=== PATIENT | female | born 1940 | race Asian ===

== ENCOUNTER 2016-05-01 07:43 | Day surgery (SDC) | payer OTHER ==
[2016-05-01] MEDS ORDERED: DIAZEPAM 5 MG TAB PO ONE (07:46)
[2016-05-01] MEDS ORDERED: ASPIRIN EC 325 MG TAB PO ONE ×2 (07:46→08:35)
[2016-05-01] MEDS ORDERED: NS 1,000 ML IV ONE (07:46)
[2016-05-01] MEDS ORDERED: FAMOTIDINE 20 MG TAB PO ONE (07:46)
[2016-05-01] MEDS ORDERED: diphenhydrAMINE 25 MG CAP PO ONE ×2 (07:46→08:35)
--- NOTE | 2016-05-01 08:25 | CPEKG ---
Heart Rate: 63 RR Interval: 952 P-R Interval: 216 QRSD Interval: 88 QT Interval: 444 QTC Interval: 455 P [place]: 27 QRS [place]: -18 T Wave [place]: 53 EKG Severity - ABNORMAL ECG - EKG Impression: SINUS RHYTHM EKG Impression: PROBABLE LEFT ATRIAL ABNORMALITY EKG Impression: PROBABLE LEFT VENTRICULAR HYPERTROPHY EKG Impression: PROBABLE INFERIOR INFARCT, AGE INDETERMINATE Electronically Signed By: Nash Porras 01-May-2016 09:13:56
[2016-05-01] MEDS ORDERED: FAMOTIDINE 20 MG TAB ONE (08:35)
[2016-05-01] MEDS ORDERED: DIAZEPAM 5 MG TAB ONE (08:35)
[2016-05-01 08:39] LABS: % IMMATURE GRANULYOCYTES 0.4 % (0.0-1.1); ABSOLUTE IMMATURE GRANULOCYTES 0.03 10^3/uL (0.00-0.10); ADD DIFF? NO; ADD MORPH? NO; ADD SCAN? NO; ATYPICAL LYMPHOCYTE FLAG 0 (0-99); FRAGMENT RBC FLAG 0 (0-99); HEMATOCRIT 39.9 % (38.0-47.0); HEMOGLOBIN 14.2 g/dL (12.6-16.3); LEFT SHIFT FLG 0 (0-99); LIPEMIA HEMOLYSIS FLAG 90 (0-99); MEAN CELL HEMOGLOBIN 33.5 pg (27.9-34.1); MEAN CELL HEMOGLOBIN CONCENTR. 35.6 g/dL (32.4-36.7); MEAN CELL VOLUME 94.1 fL (81.5-99.8); MEAN PLATELET VOLUME 8.8 fL (8.7-11.7); PLATELET CLUMPS FLAG 0 (0-99); PLATELET COUNT 220 10^3/uL (150-400); RED BLOOD CELL COUNT 4.24 10^6/uL (4.18-5.33); RED CELL DISTRIBUTION WIDTH 11.9 % (11.5-15.2)
[2016-05-01 08:45] LABS: INR 1.01 (0.83-1.16); PROTIME(PATIENT) 13.2 SEC (12.0-15.0)
[2016-05-01 09:01] LABS: ANION GAP 9 mEq/L (8-16); CARBON DIOXIDE 25 mEq/l (22-31); CHLORIDE 108 mEq/L (97-110); CHOLESTEROL 143 mg/dL (140-220); CHOLESTEROL/HDL RATIO 3.11 RATIO (1.00-4.44); CREATININE 0.7 mg/dL (0.6-1.0); GLOMERULAR FILTRATION RATE > 60; GLUCOSE 94 mg/dL (70-100); HIGH DENSITY LIPOPROTEIN 46 mg/dL (40-85); LDL/HDL RATIO 1.48 RATIO (1.00-3.22); LOW DENSITY LIPOPROTEIN 68 mg/dL (80-100); MAGNESIUM 2.1 mg/dL (1.6-2.3); NON-HIGH DENSITY LIPOPROTEIN 97 mg/dL (90-129); POTASSIUM 4.5 mEq/L (3.5-5.2); SODIUM 142 mEq/L (134-144); TRIGLYCERIDE 147 mg/dL (35-135); VERY LOW DENSITY LIPOPROTEINS 29 mg/dL (8-25)
[2016-05-01] MEDS ORDERED: MIDAZOLAM 2 MG/2 ML VIAL ONE (09:14)
[2016-05-01] MEDS ORDERED: LIDOCAINE 1% 30 ML SDV ONE (09:14)
[2016-05-01] MEDS ORDERED: fentaNYL 100 MCG/2 ML INJ ONE (09:14)
[2016-05-01] MEDS ORDERED: IOPAMIDOL (ISOVUE 370) 100 ML BTL IV ONE (09:15)
[2016-05-01] MEDS ORDERED: VERAPAMIL 5 MG/2 ML VIAL ONE (09:15)
[2016-05-01] MEDS ORDERED: HEPARIN 10,000 UNIT/10 ML MDV ONE (09:15)
[2016-05-01] MEDS ORDERED: HYDROCODONE/APAP 5/325 TAB PO PRN (10:50)
[2016-05-01] MEDS ORDERED: ATROPINE SULFATE 1 MG/10 ML SYR IVP PRN (10:50)
[2016-05-01] MEDS ORDERED: NITROGLYCERIN 0.4 MG BTL SL PRN (10:50)
[2016-05-01] MEDS ORDERED: ONDANSETRON 4 MG/2 ML VIAL IVP PRN (10:50)
[2016-05-01] MEDS ORDERED: OXYCODONE/APAP 5/325 TAB PO PRN (10:50)
--- NOTE | 2016-05-01 10:56 | PDDXCAT ---
Diagnostic Cath Note - . Date: 05/01/16 Recreation Attendant Supervisor: Willy Indication: CCC Class III and IV angina on medical treatment - Procedure Access: left wrist Procedure: left heart catheterization, coronary angiography, left ventriculogram - Materials Left Heart Cath size: 5F Left Heart Cath materials: JL5.0, JR4.0, pigtail - Findings-Left Heart Catheterization LM: Calcified but unobstructed LAD: diffuse calcification with proximal 45% stenosis, mid 60% stenosis. 100% occlusion of 1st diagonal with collateral flow. LCX: Calcified, tortuous, no focal obstruction RCA: dominant: 30% stenosis. EDP: 15 mm of mercury LVEF: 70% Wall motion: normal Complications: none: Technical difficulties significant tortuosity from the left radial Estimated blood loss: <50ml Closure method: TR Band Assessment: 1. diffuse moderate to severe coronary artery disease. 2. occlusion of a small principal diagonal. 3. normal left ventricular systolic function with normal filling pressures. 4. aortic root dilatation with significant tortuosity consistent with hypertensive heart disease. Plan: Recommendations are for aggressive medical therapy with secondary prevention goals. With normal left ventricular function and complete occlusion of a small diagonal I do not think intervention is warranted at this time unless she fails medical therapy. Would consider PCI of the LAD diagonal system but with tortuosity from the upper extremity with pursue this from the groin. This was discussed with the patient's family. Will review films with Dr. Adams patient' s primary care hotel or motel manager. Patient Problems: Problems Problem Status Diagnosed Coronary artery disease Acute
== END 2016-05-01 14:03 | disposition home or self-care (01) ==
LOC: FCATH 07:43
PROVIDERS: ATTEND Internal Medicine Interventional Cardiology
PROC: B2111ZZ Fluoroscopy of Multiple Coronary Arteries using Low Osmolar Contrast (ICD-10-PCS; principal; 2016-05-01)
PROC: 4A020N7 Measurement of Cardiac Sampling and Pressure, Left Heart, Open Approach (ICD-10-PCS; principal; 2016-05-01)
PROC: B2151ZZ Fluoroscopy of Left Heart using Low Osmolar Contrast (ICD-10-PCS; principal; 2016-05-01)
DX: I11.9 Hypertensive heart disease without heart failure (principal); I25.119 Atherosclerotic heart disease of native coronary artery with unspecified angina pectoris; I71.01 Dissection of thoracic aorta; Z85.3 Personal history of malignant neoplasm of breast; E78.5 Hyperlipidemia, unspecified; R06.01 Orthopnea
CPT/HCPCS: J1644; J2250; J3010; Q9967

== ENCOUNTER → 2016-06-03 | Outpatient (CLI) | payer OTHER ==
--- NOTE | 2016-06-03 13:00 | MA ---
Screening Digital Mammogram With Tomosynthesis and iCAD Indication: Routine screening. Personally diagnosed with left breast cancer in 2004. Sister diagnosed with breast cancer in her 50s. Technique: Standard digital CC projections were obtained. Digital breast tomosynthesis was performed in the MLO projection with reconstruction at 1.0-mm slice thickness. Composite MLO views were recons tructed. This examination was processed by the iCAD computer-aided detection system. Comparison: July 2014, June 2013, and February 2011. Breast density: Type C. Findings: CAD was reviewed. The benign lumpectomy scar in the upper left breast and benign bilateral diffuse arterial vascular calcification are unchanged. No new mass, architectural distortion or malig nant-type calcification have developed. Impression: Benign unchanged mammograms. BI-RADS 2: Benign finding. Recommendation: Routine screening is recommended in one year, as long as physical examination is esperanza ign in this patient with moderately dense breast parenchyma. [facility] will send a result letter to the patient. Negative mammography should not preclude additional workup of a clinically suspicious finding. The patient's information is entered into a reminder system with a target due date for her next mammo gram.
--- NOTE | 2016-06-03 20:29 | DX ---
DEXA Bone Mineral Densitometry Clinical Indications: Postmenopausal, screening for osteoporosis Comparison: August 05, 2013 (low bone density) Technique: Bone Mineral Densitometry (BMD) by Dual Energy X-Ray Absorptiometry (DEXA) was performed utilizing the [employer] scanner. The lumbar spine was evaluated in the AP projection. The bilat eral hips and forearm were evaluated in the AP projection. Vertebral fracture assessment was also pe rformed. AP Lumbar Spine: The L1, L2, L3 and L4 vertebral bodies were evaluated. BMD: 1.196 gm/cm2 T-score: 0 SD Z-score: 2.1 SD No significant change. AP Left Hip: Neck BMD: 0.708 gm/cm2 T-score: -2.4 SD Z-score: -0.3 SD No significant change in total BMD AP Right Hip: Neck BMD: 0.721 gm/cm2 T-score: -2.3 SD Z-score: -0.2 SD Total BMD has significantly decreased by 4.8% AP Left Forearm, 04/30: BMD: 0.675 gm/cm2 T-score: -2.3 SD Z-score: -0.2 SD No significant change. Vertebral Fracture Assessment: There is a new moderate compression of T10.. No prevertebral aortic c alcification, significant marginal bone spurring, facet arthrosis, or intrinsic vertebral body scler osis that would effect the accuracy of the lumbar spine BMD measurement. Conclusion: Considering the lowest measured site, the patient has low bone density. There has been a significant downward trend in both hips and in the forearm since the patient was 68 years old.. Sinc e there is a new compression fracture in the thoracic spine, the patient likely has low bone strength that is out of proportion to her BMD. The ten year FRAX risk for any major osteoporotic fracture is 14.7% and for a hip fracture is 4.3%. A ccording to the recommendations of the National Osteoporosis Foundation, this patient would be a good candidate for bone strengthening pharmacologic intervention. Any bone loss in this patient is probably related to aging or estrogen deficiency. Consider excluding secondary metabolic causes of bone loss (reported to be present in as many as 30% of patients with normal Z scores). Basic laboratory evaluation might include blood chemistries (calci um, phosphorus, alkaline phosphatase, liver function tests, creatinine, total protein), complete bloo d count, serum 25-OH- vitamin D3 level, 24-hour urine calcium, serum TSH and serum PTH. Targeted l aboratory testing based on individual patient circumstances might include serum electrophoresis (SPEP or UPEP), anti-tissue transglutaminase antibody levels (celiac disease) , serum bone specific alkal ine phosphatase, bone turnover markers (urine, serum) or fibroblast growth factor 23 (FGF 23)(evaluat e for unexplained osteomalacia). If secondary causes are excluded, then consider initiating treatment with a bisphosphonate (such as F osamax, Actonel or Boniva). If the patient is unable to use an oral bisphosphonate, another agent suc h as IV bisphosphonates (Boniva or Reclast), teriparatide (Forteo), a selective estrogen receptor mo dulator (Evista) or Denosumab ( anti RANKL monoclonal antibody) might be considered. If antiresorptive therapy is initiated and if clinically indicated, consider obtaining a baseline and 3 month followup bone resorption marker (NTX, CTX, TRAP5b or Pyridinoline, deoxypyridinoline) to mon itor the therapeutic effect. Supplementing an insufficient diet to achieve total intakes of 1500 mg calcium and 800 International Units of vitamin D daily should be considered. Osteoporosis prevention and treatment begins by modify ing risk factors. The patient should be encouraged to participate in a regular exercise program that includes weightbearing and muscle strengthening regimens, as is clinically appropriate. Recommend follow-up DEXA in one year to assess the efficacy of pharmacologic intervention and/or kena ection of appropriate secondary cause.
== END ==
LOC: FIMAGING 10:20
PROVIDERS: ATTEND Physician Assistant
DX: Z12.31 Encounter for screening mammogram for malignant neoplasm of breast (principal); Z13.820 Encounter for screening for osteoporosis; M85.80 Other specified disorders of bone density and structure, unspecified site; Z85.3 Personal history of malignant neoplasm of breast; Z80.3 Family history of malignant neoplasm of breast
CPT/HCPCS: G0202

== ENCOUNTER → 2017-07-14 | Outpatient (CLI) | payer OTHER ==
[~2017-07-14] MED LIST: IOPAMIDOL (ISOVUE 370) 100 ML BTL IV ONE
== END ==
LOC: FIMAGING 09:44
PROVIDERS: ATTEND Physician Assistant
DX: I25.10 Atherosclerotic heart disease of native coronary artery without angina pectoris (principal); J98.4 Other disorders of lung; I51.7 Cardiomegaly
CPT/HCPCS: 71275; Q9967

== ENCOUNTER → 2018-02-24 | Outpatient (CLI) | payer MEDICARE, OTHER | LOC: FIMAGING 09:57 | PROVIDERS: ATTEND Internal Medicine | DX: M75.121 Complete rotator cuff tear or rupture of right shoulder, not specified as traumatic (principal); M75.81 Other shoulder lesions, right shoulder; M19.011 Primary osteoarthritis, right shoulder ==